=== PATIENT | male | born 1995 | race Caucasian/White ===

== ENCOUNTER 2023-01-16 12:38 | Emergency (ER) | payer BC ==
[~2023-01-16] VITALS: Ht 182.9 cm; Wt 86.2 kg
--- NOTE | 2023-01-16 12:50 | NUR ---
The patient is presented to ER for right hand swelling/red x3d. Rates pain 2/10. No s/s poor circulation noted. Will continue to monitor the patient.
--- NOTE | 2023-01-16 13:20 | NUR ---
FOR PATIENT RESERVATIONS MANAGER PLEASE CALL SADIE AT [phone]
[2023-01-16] MEDS ORDERED: SULF1TAB48 PO (14:15)
--- NOTE | 2023-01-16 14:18 | NUR ---
Patient discharged to [facility] in stable condition. Written and verbal after care instructions given. Patient verbalizes understanding of instruction. The patient is picked up by [facility] rep.
[2023-01-16 14:20] VITALS: BP 147/80
== END 2023-01-16 14:20 | disposition home or self-care (01) ==
LOC: ER 13:04
DX: L03.113 Cellulitis of right upper limb (principal); F19.90 Other psychoactive substance use, unspecified, uncomplicated; Z79.899 Other long term (current) drug therapy
CPT/HCPCS: 73130-TC